=== PATIENT | female | born 1940 | race Native Hawaiian/Other Pacific Islander ===

== ENCOUNTER 2021-09-14 13:29 | Emergency (ER) | payer OTHER ==
[~2021-09-14] VITALS: Ht 160 cm; Wt 101.2 kg
[2021-09-14 13:29] VITALS: BP 162/100; TEMP 97.3
[2021-09-14 14:27] LABS: PLATELET COUNT 212 K/uL (152-353)
[2021-09-14 14:51] LABS: POTASSIUM 3.6 mmol/L (3.6-5.2)
[2021-09-14] MEDS ORDERED: ALLO300T23 PO (16:45)
[2021-09-14] MEDS ORDERED: AMLODIPINE BESYLATE PO (16:46)
[2021-09-14] MEDS ORDERED: DRISDOL50000 UNIT PO (16:48)
[2021-09-14] MEDS ORDERED: ESCITALOPRAM10 MG PO (16:54)
[2021-09-14] MEDS ORDERED: FUROSEMIDE40 MG PO (16:55)
[2021-09-14] MEDS ORDERED: NEURONTIN 100M100 MG PO (16:56)
[2021-09-14] MEDS ORDERED: EUTHYROX100 MCG PO (16:58)
[2021-09-14] MEDS ORDERED: METO50TA63 PO (16:58)
[2021-09-14] MEDS ORDERED: OMEPRAZOLE40 MG PO (17:01)
[2021-09-14] MEDS ORDERED: OXYB5TAB64 PO (17:02)
[2021-09-14] MEDS ORDERED: POT CHLORIDE10 ME1 PO (17:04)
[2021-09-14] MEDS ORDERED: RISP0.5T2 PO (17:14)
[2021-09-14] MEDS ORDERED: ROSUVASTATIN CAL5 MG PO (17:15)
[2021-09-17] MEDS ORDERED: RISP0.5T2 PO (08:54)
== END 2021-09-14 15:30 | disposition still patient (30) ==
LOC: ED 13:29
PROVIDERS: Emergency Medicine
DX: F03.91 Unspecified dementia, unspecified severity, with behavioral disturbance (principal); Z11.52 Encounter for screening for COVID-19; Z04.6 Encounter for general psychiatric examination, requested by authority
CPT/HCPCS: 80053; 81000; 85027; 87635; 93005; 99283; U0003